=== PATIENT | female | born 1995 | race Caucasian/White ===

== ENCOUNTER 2016-07-12 01:32 | Emergency (ER) | payer MEDICAID ==
[2016-07-12 01:38] VITALS: TEMP 98.6
--- NOTE | 2016-07-12 01:49 | EDPHY ---
H & P Stated Complaint: possible seizure reported by friend HPI/ROS: HPI CHIEF COMPLAINT: POSSIBLE SEIZURE HISTORY OF PRESENT ILLNESS: this patient very pleasant 21-year-old female, she has a significant past medical history for bipolar disorder with severe depression, neurofibromatosis type 1, migraine headaches, mood disorder, GERD she presents emergency room by private vehicle with her significant other. They tell me they were driving home from [place] this evening. They were driving home they both felt fine the patient tells me that she felt as if a seizure was coming on and had spasms of the right side of her body. Her significant other witnessed this. The patient was aware of this happening. There is no postictal state she denies bowel or bladder incontinence, denies biting her tongue. Due to the seizure-like activity the decided come to the emergency room. The patient does tell me she has had this happen in the past and has been worked up for this however no beaking give her great idea of what it is. Currently she tells me she feels weak all over body she has a diffuse 2/ 10 headache and she feels nauseous. She denies drug use this evening. Denies being . Denies fever, she denies chest pain, shortness of breath, stiff neck. She tells me she seen a neurologist in the past for seizures however is not ever been placed on seizure medication. Past Medical History: Bipolar disorder, neurofibromatosis type 1, migraine headaches, mood disorder, GERD Past Surgical History: Denies significant surgical history Social History: Denies daily use drugs alcohol tobacco products Family History: Noncontributory ROS REVIEW OF SYSTEMS: A comprehensive 10 point review of systems is otherwise negative aside from elements mentioned in the history of present illness. Exam Constitutional appears well nontoxic,triage nursing summary reviewed, vital signs reviewed, awake/alert. Eyes normal conjunctivae and sclera, EOMI, PERRLA. HENT normal inspection, atraumatic, moist mucus membranes, no epistaxis, neck supple/ no meningismus, no raccoon eyes. Respiratory clear to auscultation bilaterally, normal breath sounds, no respiratory distress, no wheezing. Cardiovascular rate normal, regular rhythm, no murmur, no edema, distal pulses normal. Gastrointestinal soft, non-tender, no rebound, no guarding, normal bowel sounds, no distension, no pulsatile mass. Genitourinary no CVA tenderness. Musculoskeletal no midline vertebral tenderness, full range of motion, no calf swelling, no tenderness of extremities, no meningismus, good pulses, neurovascularly intact. Skin pink, warm, & dry, no rash, skin atraumatic. Neurologic awake, alert and oriented x 3, AAOx3, moves all 4 extremities equally, motor intact, sensory intact, CN II-XII intact, normal cerebellar, normal vision, normal speech. Psychiatric normal mood/affect. Heme/Lymph/Immune no lymphadenopathy. Differential Diagnosis: Includes but is not limited to in a particular order, seizure, pseudo-seizure, electrolyte abnormality, myoclonic jerks, dehydration, , arrhythmia Medical Decision Making: this patient placed on a school lunch monitor patient had an IV established receive a fluid bolus will check blood work including electrolytes, patient had an EKG, will do a CT scan of her head. Her neurological exam at this time is nonfocal she is resting comfortably. Re-evaluation: CT scan of the head w/o. The results of the study are negative for acute traumatic injury or any nidus of seizure The study was read by Dr. Alvarez. I viewed the images myself on the PACS system. EKG interpretation by me on record in [employer] system. Impression time of EKG is 2:25 a.m., this is sinus rhythm rate of 88. No acute ischemic changes visualized. No signs of arrhythmia. 0344: re-examination at this time this patient is resting comfortably no acute distress her neurological exam is unremarkable she has not had any further seizure activity here. I did go over test results. She is comfortable updating discharged did recommend case this was a seizure that she follows up with Neurology outpatient. Do not drive until cleared by Neurology she understands. Source: Patient - Personal History LMP (Females 10-55): Over 28 Days Ago Current Tetanus/Diphtheria Vaccine: Yes Current Tetanus Diphtheria and Acellular Pertussis (TDAP): Yes Tetanus Vaccine Date: 2013 - Medical/Surgical History Hx Asthma: Yes Hx Chronic Respiratory Disease: No Hx Diabetes: No Hx Cardiac Disease: No Hx Renal Disease: No Hx Cirrhosis: No Hx Alcoholism: No Hx HIV/AIDS: No Hx Splenectomy or Spleen Trauma: No Other PMH: migraines; acid relflux; depression; mood swings; "mood disorder NOS "; strobisnis sx; T&A; neurofibromitosis 1; cutter - Social History Smoking Status: Never smoked Constitutional: Initial Vital Signs Temperature (C) 37.0 C 07/12/16 01:34 Heart Rate 93 07/12/16 01:34 Respiratory Rate 16 07/12/16 01:34 Blood Pressure 137/98 H 07/12/16 01:34 O2 Sat (%) 100 07/12/16 01:34 O2 Delivery Mode Room Air Allergies/Adverse Reactions: oseltamivir phosphate [From Tamiflu] Allergy (Intermediate, Verified 07/12/16 01 :38) Rash Penicillins Allergy (Intermediate, Verified 07/12/16 01:38) Rash HAZELNUT Allergy (Uncoded 12/13/15 19:25) HOPS Allergy (Uncoded 12/13/15 19:25) Medical Decision Making - Data Points Laboratory Results: Laboratory Results 07/12/16 01:50 07/12/16 01:50 07/12/16 01:50 WBC 12.39 H 10^3/uL (3.80-9.50) RBC 4.45 10^6/uL (4.18-5.33) Hgb 13.4 g/dL (12.6-16.3) Hct 38.1 % (38.0-47.0) MCV 85.6 fL (81.5-99.8) MCH 30.1 pg (27.9-34.1) MCHC 35.2 g/dL (32.4-36.7) RDW 12.0 % (11.5-15.2) Plt Count 290 10^3/uL (150-400) MPV 9.3 fL (8.7-11.7) Neut % (Auto) 60.7 % (39.3-74.2) Lymph % (Auto) 28.2 % (15.0-45.0) [place] % (Auto) 9.4 % (4.5-13.0) Eos % (Auto) 0.8 % (0.6-7.6) Baso % (Auto) 0.6 % (0.3-1.7) Nucleat RBC Rel Count 0.0 % (0.0-0.2) Absolute Neuts (auto) 7.52 H 10^3/uL (1.70-6.50) Absolute Lymphs (auto) 3.50 H 10^3/uL (1.00-3.00) Absolute Monos (auto) 1.16 H 10^3/uL (0.30-0.80) Absolute Eos (auto) 0.10 10^3/uL (0.03-0.40) Absolute Basos (auto) 0.07 10^3/uL (0.02-0.10) Absolute Nucleated RBC 0.00 10^3/uL (0-0.01) Immature Gran % 0.3 % (0.0-1.1) Immature Gran # 0.04 10^3/uL (0.00-0.10) Sodium 140 mEq/L (134-144) Potassium 3.8 mEq/L (3.5-5.2) Chloride 110 mEq/L (97-110) Carbon Dioxide 20 L mEq/l (22-31) Anion Gap 10 mEq/L (8-16) BUN 14 mg/dL (7-23) Creatinine 0.6 mg/dL (0.6-1.0) Estimated GFR > 60 Glucose 90 mg/dL (70-100) Calcium 9.4 mg/dL (8.5-10.4) Magnesium 1.8 mg/dL (1.6-2.3) Total Bilirubin 0.3 mg/dL (0.1-1.4) Conjugated Bilirubin 0.3 mg/dL (0.0-0.5) Unconjugated Bilirubin 0.0 mg/dL (0.0-1.1) AST 22 IU/L (14-46) ALT 29 IU/L (9-52) Alkaline Phosphatase 49 IU/L (38-126) Total Protein 7.2 g/dL (6.3-8.2) Albumin 4.1 g/dL (3.5-5.0) Lipase 75.0 IU/L (23-300) Beta HCG, Qual NEGATIVE Departure - Departure Disposition: Home, Routine, Self-Care Clinical Impression: Seizure Condition: Good Instructions: Anxiety (ED), New-Onset Seizure in Adults (ED) Additional Instructions: 1. Stay well-hydrated. 2. I do recommend he do not drive a motor vehicle into your cleared by Neurology. 3. I do not have any evidence that you had a seizure here in the emergency room however you should still follow up with Neurology. Referrals: Laura Irvin MD [Primary Care Provider] - As per Instructions Jim Butcher, [Medical Doctor] - As per Instructions
[2016-07-12] MEDS ORDERED: NS 1,000 ML IV ONE (01:55)
[2016-07-12 02:14] LABS: % IMMATURE GRANULYOCYTES 0.3 % (0.0-1.1); ABSOLUTE IMMATURE GRANULOCYTES 0.04 10^3/uL (0.00-0.10); ADD DIFF? NO; ADD MORPH? NO; ADD SCAN? NO; ATYPICAL LYMPHOCYTE FLAG 10 (0-99); FRAGMENT RBC FLAG 0 (0-99); HEMATOCRIT 38.1 % (38.0-47.0); HEMOGLOBIN 13.4 g/dL (12.6-16.3); LEFT SHIFT FLG 0 (0-99); LIPEMIA HEMOLYSIS FLAG 90 (0-99); MEAN CELL HEMOGLOBIN 30.1 pg (27.9-34.1); MEAN CELL HEMOGLOBIN CONCENTR. 35.2 g/dL (32.4-36.7); MEAN CELL VOLUME 85.6 fL (81.5-99.8); MEAN PLATELET VOLUME 9.3 fL (8.7-11.7); PLATELET CLUMPS FLAG 10 (0-99); PLATELET COUNT 290 10^3/uL (150-400); RED BLOOD CELL COUNT 4.45 10^6/uL (4.18-5.33)
--- NOTE | 2016-07-12 02:27 | CPEKG ---
Heart Rate: 88 RR Interval: 682 P-R Interval: 144 QRSD Interval: 78 QT Interval: 368 QTC Interval: 446 P [place]: 28 QRS [place]: 65 T Wave [place]: 18 EKG Severity - NORMAL ECG - EKG Impression: SINUS RHYTHM Electronically Signed By: Ozzie Haywood 13-Jul-2016 22:22:09
[2016-07-12 02:33] LABS: ALANINE AMINOTRANSFERASE 29 IU/L (9-52); ALBUMIN 4.1 g/dL (3.5-5.0); ALKALINE PHOSPHATASE 49 IU/L (38-126); ANION GAP 10 mEq/L (8-16); ASPARTATE AMINOTRANSFERASE 22 IU/L (14-46); BILIRUBIN,TOTAL 0.3 mg/dL (0.1-1.4); BILIRUBIN-CONJUGATED 0.3 mg/dL (0.0-0.5); CALCIUM 9.4 mg/dL (8.5-10.4); CARBON DIOXIDE 20 mEq/l (22-31); CHLORIDE 110 mEq/L (97-110); CREATININE 0.6 mg/dL (0.6-1.0); GLOMERULAR FILTRATION RATE > 60; GLUCOSE 90 mg/dL (70-100); MAGNESIUM 1.8 mg/dL (1.6-2.3); POTASSIUM 3.8 mEq/L (3.5-5.2); SODIUM 140 mEq/L (134-144); TOTAL PROTEIN 7.2 g/dL (6.3-8.2)
[2016-07-12 04:18] VITALS: BP 107/65; PULSE 89; RESP 18; O2SAT 96
--- NOTE | 2016-07-12 10:39 | CT ---
Unenhanced CT Scan of the Brain Clinical History: 21-year-old female presenting to the emergency department after a seizure. The patient does not believe that she hit her head. Rule out acute abnormality. Technique: Standard unenhanced axial CT images were acquired from the skull base to the skull vertex, reformatted at 5.00 and 1.50 mm increments and reviewed in bone, brain, and subdural windows. Parasagittal and paracoronal reconstructed images were reviewed on the workstation. The DFOV is 25.0 cm. Dose reduction protocol was used. Comparison Studies: Unenhanced CT scan of the brain dated May 14, 2014, and MR imaging of the brain dated September 25, 2011. Findings: Again, the ventricles and basilar cisterns are normal in size and symmetrical in configuration. There is no midline shift, or other evidence of mass effect. There is no acute or subacute abnormal intra- or extraaxial blood collection, or infarction. The brainstem and cerebellum appear normal. The craniocervical junction, sella turcica, pineal gland, and the orbits are unremarkable. There is no evidence of a skull fracture. There is some minimal mucosal thickening associated with a portion of the left ethmoids. The paranasal sinuses are otherwise unremarkable. The mastoids are patent. Impression: Normal unenhanced CT scan of the brain. If there is further clinical concern regarding the patient's history of seizures , MR imaging could be considered. I provided a preliminary interpretation to Dr. Riley Jacinto at 2:18 a.m. on Thursday, July 12, 2016 regarding the above findings. My final interpretation is concordant with my initial impression. [id number] POS 99 MTDD
== END 2016-07-12 04:30 | disposition home or self-care (01) ==
DX: R56.9 Unspecified convulsions (principal); J45.909 Unspecified asthma, uncomplicated

== ENCOUNTER 2017-03-03 21:35 | Emergency (ER) | payer MEDICAID ==
--- NOTE | 2017-03-03 21:54 | EDPHY ---
Mental Health General Previous Psychiatric History: previous inpatient psychiatric admission, previous suicide attempt, bipolar, PTSD Smoking Status: Never smoked Time Patient Placed on M1 Hold: 21:00 Time of Transfer of Care: 00:00 To :: Natasha Course: awaiting acceptance to inpatient bed Narrative: CHIEF COMPLAINT: Suicidal ideations, M1 hold HISTORY OF PRESENT ILLNESS: 21-year-old female presents emergency department on an M1 hold from the crisis [facility]. Patient has been evaluated and is sent here to be medically cleared prior to hospitalization. Patient has a history of bipolar disorder, PTSD. She reports suicidal ideations x1 month, she stopped taking her medications 1 month ago. Patient reports she just forgot to start taking them again. Patient reports she has been stock piling medications to overdose. She reports a overdose 1 year ago in a suicide attempt. Patient denies drug use, she denies alcohol use. No auditory or visual hallucinations, no homicidal ideations. REVIEW OF SYSTEMS: A comprehensive 10 point review of systems is otherwise negative aside from elements mentioned in the history of present illness. Physical Exam Gen: Alert and Oriented, NAD HEENT: PERRL, moist mucous membranes NECK: no meningismus CV: regular rate and regular rhythm PULM: CTAB, no wheezes ABDOMEN: soft, non tender to palpation, BS present BACK: No CVA tenderness NEURO: Neurologically grossly intact EXTREMITIES: normal appearing SKIN: no rash or break in skin on exposed skin PSYCH: Reports suicidal ideations. (Samira Schafer) Medical Decision Makin-Pt has been medically cleared and evaluated. Mental health is seeking placement for patient. Report passed on to Dr. Kaur at the end of my shift. (Samira Schafer) 6:30 a.m.- The patient has been stable throughout my shift. She is currently awaiting placement. The case will be signed out at 7:00 a.m. to the oncoming provider Dr. Malagon. (Georgina Kaur) 7:00 a.m.-I assumed care of this patient at shift change. She presents with suicidal ideation on an M1 hold. Looking for inpatient disposition 10:00 a.m.-this patient has been accepted to [facility] by Dr. Cohen. ( Anne Malagon) - Objective Vital Signs: Initial Vital Signs Temperature (C) 37.0 C 03/03/17 21:54 Heart Rate 91 03/03/17 21:54 Respiratory Rate 18 03/03/17 21:54 Blood Pressure 135/93 H 03/03/17 21:54 O2 Sat (%) 98 03/03/17 21:54 O2 Delivery Mode Room Air Allergies/Adverse Reactions: oseltamivir phosphate [From Tamiflu] Allergy (Intermediate, Verified 07/12/16 01 :38) Rash Penicillins Allergy (Intermediate, Verified 07/12/16 01:38) Rash HAZELNUT Allergy (Uncoded 12/13/15 19:25) HOPS Allergy (Uncoded 12/13/15 19:25) Medications Given: Discontinued Medications Acetaminophen (Tylenol) 1,000 mg PO EDNOW ONE Stop: 03/04/17 07:29 Last Admin: 03/04/17 08:11 Dose: 1,000 mg Cetirizine HCl (Zyrtec) 10 mg PO EDNOW ONE Stop: 03/04/17 07:29 Last Admin: 03/04/17 08:11 Dose: 10 mg Laboratory Results: Laboratory Results 03/03/17 21:50 03/03/17 21:50 03/03/17 03/03/17 03/03/17 21:50 21:50 21:50 Sodium 138 mEq/L mEq/L (134-144) Potassium 3.6 mEq/L mEq/L (3.5-5.2) Chloride 107 mEq/L mEq/L (97-110) Carbon Dioxide 18 mEq/l L mEq/l (22-31) Anion Gap 13 mEq/L mEq/L (8-16) BUN 9 mg/dL mg/dL (7-23) Creatinine 0.6 mg/dL mg/dL (0.6-1.0) Estimated GFR > 60 Glucose 88 mg/dL mg/dL (70-100) Calcium 9.8 mg/dL mg/dL (8.5-10.4) Beta HCG, Qual NEGATIVE Salicylates < 1.0 mg/dL L mg/dL (2.0-20.0) Urine Opiates Screen NEGATIVE (NEGATIVE) Acetaminophen < 10 mcg/mL L mcg/mL (10-30) Urine Barbiturates NEGATIVE (NEGATIVE) Ur Phencyclidine Scrn NEGATIVE (NEGATIVE) Ur Amphetamine Screen NEGATIVE (NEGATIVE) U Benzodiazepines Scrn NEGATIVE (NEGATIVE) Urine Cocaine Screen NEGATIVE (NEGATIVE) U Marijuana (THC) Screen NEGATIVE (NEGATIVE) Ethyl Alcohol < 10 mg/dL mg/dL (0-10) Departure - Departure Disposition: Other Psych, Not [place] Clinical Impression: Suicidal ideation Referrals: Patient,NotPresent [Unknown] - As per Instructions
[2017-03-03 21:55] VITALS: RESP 18
[2017-03-03 22:01] LABS: % IMMATURE GRANULYOCYTES 0.3 % (0.0-1.1); ABSOLUTE IMMATURE GRANULOCYTES 0.04 10^3/uL (0.00-0.10); ADD DIFF? NO; ADD MORPH? NO; ADD SCAN? NO; ATYPICAL LYMPHOCYTE FLAG 20 (0-99); FRAGMENT RBC FLAG 0 (0-99); HEMATOCRIT 41.4 % (38.0-47.0); HEMOGLOBIN 14.5 g/dL (12.6-16.3); LEFT SHIFT FLG 0 (0-99); LIPEMIA HEMOLYSIS FLAG 90 (0-99); MEAN CELL HEMOGLOBIN 30.1 pg (27.9-34.1); MEAN CELL VOLUME 86.1 fL (81.5-99.8); MEAN PLATELET VOLUME 9.6 fL (8.7-11.7); PLATELET CLUMPS FLAG 10 (0-99); PLATELET COUNT 270 10^3/uL (150-400); RED BLOOD CELL COUNT 4.81 10^6/uL (4.18-5.33); RED CELL DISTRIBUTION WIDTH 11.9 % (11.5-15.2)
[2017-03-03 22:15] LABS: ANION GAP 13 mEq/L (8-16); CALCIUM 9.8 mg/dL (8.5-10.4); CARBON DIOXIDE 18 mEq/l (22-31); CHLORIDE 107 mEq/L (97-110); CREATININE 0.6 mg/dL (0.6-1.0); ETHANOL SERUM < 10 mg/dL (0-10); GLOMERULAR FILTRATION RATE > 60; GLUCOSE 88 mg/dL (70-100); POTASSIUM 3.6 mEq/L (3.5-5.2); SALICYLATE < 1.0 mg/dL (2.0-20.0); SODIUM 138 mEq/L (134-144)
[2017-03-04] MEDS ORDERED: CETIRIZINE 10 MG TAB PO ONE (07:28)
[2017-03-04] MEDS ORDERED: ACETAMINOPHEN 500 MG TAB PO ONE (07:28)
[2017-03-04 09:08] VITALS: BP 109/80; PULSE 75; TEMP 98.6; O2SAT 96
== END 2017-03-04 10:55 ==
LOC: EDBD → EDUNIT#
DX: R45.851 Suicidal ideations (principal)
CPT/HCPCS: 80305; G0480

== ENCOUNTER 2018-09-21 12:17 | Emergency (ER) | payer MEDICAID ==
--- NOTE | 2018-09-21 13:07 | EDPHY ---
H & P Stated Complaint: voluntary SI/anxiety Time Seen by Provider: 09/21/18 13:07 HPI/ROS: HPI CHIEF COMPLAINT: Anxiety, passive SI HISTORY OF PRESENT ILLNESS: Patient is a very pleasant 23-year-old female she has a history of bipolar disorder, history depression, and anxiety presents emergency room stating that she has had increasing anxiety, passive thoughts of SI with no specific plan, she arrived here on her own. She is requesting mental health evaluation and help. She has been compliant with her medications. Past Medical History: Anxiety, PTSD, bipolar disorder. Past Surgical History: Denies surgical history Social History: Father at bedside. Denies drugs alcohol tobacco. Family History: Noncontributory ROS REVIEW OF SYSTEMS: 10 Systems were reviewed and negative with the exception of the elements mentioned in the history of present illness. Exam Constitutional triage nursing summary reviewed, vital signs reviewed, awake/ alert. Eyes normal conjunctivae and sclera, EOMI, PERRLA. HENT normal inspection, atraumatic, moist mucus membranes, no epistaxis, neck supple/ no meningismus, no raccoon eyes. Respiratory clear to auscultation bilaterally, normal breath sounds, no respiratory distress, no wheezing. Cardiovascular rate normal, regular rhythm, no murmur, no edema, distal pulses normal. Gastrointestinal soft, non-tender, no rebound, no guarding, normal bowel sounds, no distension, no pulsatile mass. Genitourinary no CVA tenderness. Musculoskeletal no midline vertebral tenderness, full range of motion, no calf swelling, no tenderness of extremities, no meningismus, good pulses, neurovascularly intact. Skin pink, warm, & dry, no rash, skin atraumatic. Neurologic awake, alert and oriented x 3, AAOx3, moves all 4 extremities equally, motor intact, sensory intact, CN II-XII intact, normal cerebellar, normal vision, normal speech. Psychiatric anxious, depressed. Heme/Lymph/Immune no lymphadenopathy. Differential Diagnosis: Includes but is not limited to in a particular order mood disorder, suicidal ideation, depression, anxiety, PTSD, bipolar disorder Medical Decision Making: Plan for this patient blood draw for medical clearance , urine drug screen, and will have mental health evaluation. She is voluntary. Re-evaluation: 1818: Patient was seen and evaluated by mental health. Also consulted Dr. Ibarra. They do not feel that she would benefit from inpatient psychiatric hospitalization. She has a safety plan and placing good follow-up care in place. After long discussion with the patient she is comfortable discharge as well as her parents at bedside are comfortable discharge. She contracts for safety, she denies wanting to hurt herself or anybody else. She has good follow -up plan and placing could be safely discharged from the emergency room. Source: Patient - Personal History LMP (Females 10-55): Now Current Tetanus Diphtheria and Acellular Pertussis (TDAP): Yes Tetanus Vaccine Date: 2013 - Medical/Surgical History Hx Asthma: Yes Hx Chronic Respiratory Disease: No Hx Diabetes: No Hx Cardiac Disease: No Hx Renal Disease: No Hx Cirrhosis: No Hx Alcoholism: No Hx HIV/AIDS: No Hx Splenectomy or Spleen Trauma: No Other PMH: migraines; acid relflux; depression; mood swings; "mood disorder NOS "; strobisnis sx; T&A; neurofibromitosis 1; cutter - Social History Smoking Status: Never smoked Constitutional: Initial Vital Signs Temperature (C) 36.9 C 09/21/18 12:26 Heart Rate 80 09/21/18 12:26 Respiratory Rate 18 09/21/18 12:26 Blood Pressure 126/85 H 09/21/18 12:26 O2 Sat (%) 98 09/21/18 12:26 O2 Delivery Mode Room Air Allergies/Adverse Reactions: oseltamivir phosphate [From Tamiflu] Allergy (Intermediate, Verified 09/21/18 12 :26) Rash Penicillins Allergy (Intermediate, Verified 09/21/18 12:26) Rash HAZELNUT Allergy (Uncoded 12/13/15 19:25) HOPS Allergy (Uncoded 12/13/15 19:25) Home Medications: Medication Instructions Recorded Viibryd 09/21/18 Vraylar 09/21/18 Medical Decision Making - Data Points Laboratory Results: Laboratory Results 09/21/18 13:11 09/21/18 13:11 09/21/18 09/21/18 09/21/18 13:15 13:11 13:11 WBC RBC Hgb Hct MCV MCH MCHC RDW Plt Count MPV Neut % (Auto) Lymph % (Auto) [place] % (Auto) Eos % (Auto) Baso % (Auto) Nucleat RBC Rel Count Absolute Neuts (auto) Absolute Lymphs (auto) Absolute Monos (auto) Absolute Eos (auto) Absolute Basos (auto) Absolute Nucleated RBC Immature Gran % Immature Gran # Sodium 137 mEq/L mEq/L (135-145) Potassium 4.0 mEq/L mEq/L (3.5-5.2) Chloride 107 mEq/L mEq/L (97-110) Carbon Dioxide 19 mEq/l L mEq/l (22-31) Anion Gap 11 mEq/L mEq/L (6-14) BUN 13 mg/dL mg/dL (7-23) Creatinine 0.5 mg/dL L mg/dL (0.6-1.0) Estimated GFR > 60 Glucose 100 mg/dL mg/dL (70-100) Calcium 9.4 mg/dL mg/dL (8.5-10.4) Beta HCG, Qual NEGATIVE Salicylates < 1.0 mg/dL L mg/dL (2.0-20.0) Urine Opiates Screen NEGATIVE (NEGATIVE) Acetaminophen < 10 mcg/mL L mcg/mL (10-30) Urine Barbiturates NEGATIVE (NEGATIVE) Ur Phencyclidine Scrn NEGATIVE (NEGATIVE) Ur Amphetamine Screen NEGATIVE (NEGATIVE) U Benzodiazepines Scrn NEGATIVE (NEGATIVE) Urine Cocaine Screen NEGATIVE (NEGATIVE) U Marijuana (THC) Screen NEGATIVE (NEGATIVE) Ethyl Alcohol < 10 mg/dL mg/dL (0-10) 09/21/18 13:11 WBC 12.68 10^3/uL H 10^3/uL (3.80-9.50) RBC 4.75 10^6/uL 10^6/uL (4.18-5.33) Hgb 14.4 g/dL g/dL (12.6-16.3) Hct 41.5 % % (38.0-47.0) MCV 87.4 fL fL (81.5-99.8) MCH 30.3 pg pg (27.9-34.1) MCHC 34.7 g/dL g/dL (32.4-36.7) RDW 12.4 % % (11.5-15.2) Plt Count 296 10^3/uL 10^3/uL (150-400) MPV 9.7 fL fL (8.7-11.7) Neut % (Auto) 75.1 % H % (39.3-74.2) Lymph % (Auto) 16.8 % % (15.0-45.0) [place] % (Auto) 6.6 % % (4.5-13.0) Eos % (Auto) 0.4 % L % (0.6-7.6) Baso % (Auto) 0.6 % % (0.3-1.7) Nucleat RBC Rel Count 0.0 % % (0.0-0.2) Absolute Neuts (auto) 9.52 10^3/uL H 10^3/uL (1.70-6.50) Absolute Lymphs (auto) 2.13 10^3/uL 10^3/uL (1.00-3.00) Absolute Monos (auto) 0.84 10^3/uL H 10^3/uL (0.30-0.80) Absolute Eos (auto) 0.05 10^3/uL 10^3/uL (0.03-0.40) Absolute Basos (auto) 0.08 10^3/uL 10^3/uL (0.02-0.10) Absolute Nucleated RBC 0.00 10^3/uL 10^3/uL (0-0.01) Immature Gran % 0.5 % % (0.0-1.1) Immature Gran # 0.06 10^3/uL 10^3/uL (0.00-0.10) Sodium Potassium Chloride Carbon Dioxide Anion Gap BUN Creatinine Estimated GFR Glucose Calcium Beta HCG, Qual Salicylates Urine Opiates Screen Acetaminophen Urine Barbiturates Ur Phencyclidine Scrn Ur Amphetamine Screen U Benzodiazepines Scrn Urine Cocaine Screen U Marijuana (THC) Screen Ethyl Alcohol Departure - Departure Disposition: Home, Routine, Self-Care Clinical Impression: Severe major depression Condition: Good Instructions: Depression (ED) Additional Instructions: 1. Return to the emergency room if you have worsening symptoms questions or concerns. 2. Return immediately to the emergency room if you have further worsening symptoms includes wanting to hurt herself or anybody else. 3. Please follow up with resources you have. Referrals: Laura Irvin MD [Primary Care Provider] - As per Instructions [facility],. [Clinic] - As per Instructions
[2018-09-21 13:29] LABS: PLATELET COUNT 296 10^3/uL (150-400)
[2018-09-21 18:42] VITALS: BP 122/79
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
--- NOTE | 2018-09-21 20:24 | ASMTTCLDSP ---
TLC Discharge Disposition Disposition: Answers: Discharge If Answers: Yes DISCHARGED: Patient/family given suicide hotline info & [facility]? Disposition Notes: Notes: Pt was offerred the option of going to a [facility] but pt declined. Pt has an appointment wt her therapist Ronnie Grey on Thursday at 2pm and her psychiatrist next Thursday. Pt stated her concern was remembering to take her medications. Pt stated she would reach out to her friends fr support with that. Pt was given resources on self care and also some info on medication reminder apps. This real estate underwriter met with pt and her parents who agreed with the discharge plan. Discharge Concerns/Recommendations: Notes: In consultation with [facility] ED physician, Riley Maher MD, and on-call psychiatrist, Jeffery Ibarra MD, both concurred that pt does not appear to meet 27-65 criteria requiring psychiatric hospitalization as pt does not appear to be an imminent risk of harm to self/others/gravely disabled due to a mental illness condition. Date Signed: 09/21/2018 08:24 PM Electronically Signed By:Kyleigh Almendarez
--- NOTE | 2018-09-21 20:28 | ASMTLCPROG ---
Notes Note: Notes: Additional dx for TLC evaluation: Posttraumatic Stress Disorder 309.81 (F43.10) Reported by patient. Date Signed: 09/21/2018 08:28 PM Electronically Signed By:Kyleigh Almendarez
== END 2018-09-21 18:40 | disposition home or self-care (01) ==
DX: R45.851 Suicidal ideations (principal); F41.8 Other specified anxiety disorders; F31.9 Bipolar disorder, unspecified; F43.10 Post-traumatic stress disorder, unspecified
CPT/HCPCS: 80305; G0480